=== PATIENT | male | born 1990 | race Caucasian/White ===

== ENCOUNTER 2016-11-11 15:40 | Emergency (ER) | payer OTHER ==
[~2016-11-11] VITALS: Ht 177.8 cm; Wt 96.0 kg
[2016-11-11 15:42] VITALS: BP 174/98; PULSE 90; RESP 16; TEMP 97.6; O2SAT 100
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
[2016-11-11] MEDS ORDERED: IBUPROFEN 800 MG TAB PO ONE (17:00)
[2016-11-11] MEDS ORDERED: SULFAMETHOXAZOLE-TRIMETHOPRIM DS 800-160 MG TAB PO ONE (17:00)
[2016-11-11] MEDS ORDERED: IBUP800T23 PO (17:04)
[2016-11-11] MEDS ORDERED: MUPI2%T TOPICAL (17:04)
[2016-11-11] MEDS ORDERED: BACT800T5 PO (17:04)
== END 2016-11-11 17:31 | disposition home or self-care (01) ==
LOC: NEPK 15:40
DX: L03.116 Cellulitis of left lower limb (principal); S90.812A Abrasion, left foot, initial encounter; S97.82XA Crushing injury of left foot, initial encounter; V03.90XA Pedestrian on foot injured in collision with car, pick-up truck or van, unspecified whether traffic or nontraffic accident, initial encounter
CPT/HCPCS: 73630; 99284